=== PATIENT | female | born 1955 | race Caucasian/White ===

== ENCOUNTER 2020-11-25 10:18 | Day surgery (SDC) | payer MEDICARE ==
[~2020-11-25] VITALS: Ht 160 cm; Wt 154.6 kg
[~2020-11-25 10:18] MED LIST: CELE-193 PO; DULO20CA50 PO; ESCI20TA PO; ESTR2TAB PO; GABA-532 PO; HYDR-4353 PO; LEVO75TA PO; ZOLP10TA5 PO
[2020-11-25 10:32] VITALS: BP 129/62
[2020-11-25] MEDS ORDERED: fentaNYL/PF 50MCG/1 ML 2ML syringe ONE (10:49)
[2020-11-25] MEDS ORDERED: MIDAZolam 1 MG/ML 5ML VIAL ONE (10:50)
[2020-11-25] MEDS ORDERED: ESCI-10 PO (10:58)
[2020-11-25] MEDS ORDERED: BUPR150T8 (10:58)
[2020-11-25] MEDS ORDERED: HYDR-3965 PO (10:59)
[2020-11-25] MEDS ORDERED: GABA300C PO (10:59)
[2020-11-25] MEDS ORDERED: MONT10TA21 PO (11:00)
[2020-11-25 11:53] VITALS: BP 114/71
[2020-11-25 12:03] VITALS: BP 118/62
[2020-11-25 12:13] VITALS: BP 117/65
[2020-11-25 12:23] VITALS: BP 108/66
== END 2020-11-25 12:35 | disposition home or self-care (01) ==
LOC: GI LAB 10:18
PROVIDERS: ATTEND Internal Medicine Gastroenterology
DX: Z12.11 Encounter for screening for malignant neoplasm of colon (principal); K57.30 Diverticulosis of large intestine without perforation or abscess without bleeding; K64.8 Other hemorrhoids; K63.89 Other specified diseases of intestine; E66.9 Obesity, unspecified; Z68.44 Body mass index [BMI] 60.0-69.9, adult; Z87.891 Personal history of nicotine dependence
CPT/HCPCS: 99153; G0121; G0500; J2250; J3010; J7040; 45378; 99152; A4620

== ENCOUNTER 2021-11-17 08:14 | Inpatient (IN) | payer MEDICARE ==
[~2021-11-17] VITALS: Ht 160 cm; Wt 153.2 kg
[~2021-11-17 08:14] MED LIST changes: +BUPR150T8; -CELE-193 PO; -DULO20CA50 PO; +ESCI-10 PO; -ESCI20TA PO; -ESTR2TAB PO; -GABA-532 PO; +GABA300C PO; +HYDR-3965 PO; -HYDR-4353 PO; +MONT10TA21 PO
[2021-11-17] MEDS ORDERED: nitroGLYCERIN 0.4mg SUBLingual tab SL PRN (08:20)
--- NOTE | 2021-11-17 08:40 | NUR ---
Pt on BiPAP 22/02 @ 40% FiO2. Pt tolerating it, but still anxious and feels like she can't breathe. aware.
[2021-11-17 08:42] LABS: BASOPHILS % (AUTO) 0.3 % (0-1); EOSINOPHILS % (AUTO) 0.3 % (0-6); HEMATOCRIT 34.9 % (35.0-45.0); HEMOGLOBIN 11.4 g/dl (12.0-16.0); LYMPHOCYTES # (AUTO) 1.4 X10'3 (1.1-4.8); LYMPHOCYTES % (AUTO) 10.3 % (21-51); MEAN CORPUSCULAR HEMOGLOBIN 26.5 PG (27.0-31.0); MEAN CORPUSCULAR HGB CONC 32.6 g/dL (33.0-36.5); MEAN CORPUSCULAR VOLUME 81.2 FL (78-98); MEAN PLATELET VOLUME 8.2 FL (7.4-10.4); MONOCYTES # (AUTO) 0.4 X10'3 (0-0.9); NEUTROPHILS # (AUTO) 11.9 X10'3 (1.8-7.7); NEUTROPHILS % (AUTO) 86.1 % (42-75); PLATELET COUNT 276 X10'3 (140-440); RED BLOOD COUNT 4.29 X10'6 (4.20-5.60); RED CELL DISTRIBUTION WIDTH 15.4 % (11.5-14.5); WHITE BLOOD COUNT 13.8 X10'3 (4.5-11.0)
[2021-11-17 08:59] LABS: ABG BASE EXCESS 1.8 mmol/L (-2.0-2.0); ABG OXYGEN SATURATION 98.6 % (94-97); ABG PCO2 (T) 29.1 mmHg (32.0-45.0); ABG PO2 (T) 124.3 mmHg (75.0-100.0); ALLEN'S TEST POSITIVE; FCOHb 0.3 % (0.0-3.9); FMetHb 0.3 % (0.0-1.5); PATIENT TEMPERATURE 36.3; RESPIRATORY RATE 10 b/min; TIDAL VOLUME 752 mL
[2021-11-17 09:08] LABS: ALANINE AMINOTRANSFERASE 17 U/L (12-78); ALBUMIN 3.6 G/DL (3.4-5.0); ALBUMIN/GLOBULIN RATIO 0.9 (1.1-1.5); ALKALINE PHOSPHATASE 69 IU/L (46-116); ASPARTATE AMINO TRANSFERASE 16 U/L (10-37); BILIRUBIN,TOTAL 0.3 MG/DL (0.1-1.0); BLOOD UREA NITROGEN 16 MG/DL (7-18); BUN/CREATININE RATIO 17.8 (6.6-38.0); CALCIUM 9.1 MG/DL (8.5-10.1); GLUCOSE 154 MG/DL (70-104); TOTAL PROTEIN 7.4 G/DL (6.4-8.2); eGFR 63 ML/MIN
[2021-11-17] MEDS ORDERED: LORazepam 2 mg/ml vial IV ONE (09:10)
[2021-11-17] MEDS ORDERED: ondansetron/PF 4mg/2ml inj IV ONE (10:00)
--- NOTE | 2021-11-17 10:15 | NUR ---
Pt states that this started by being sick to her stomach yesterday, which continued into the night, and awoke severely SOB. Pt denies CP or other associated symptoms.
[2021-11-17] MEDS ORDERED: furosemide 10 MG/1 ML 10ml inj IV ONE (10:20)
[2021-11-17] MEDS ORDERED: metoclopramide 5 mg/ml inj IV ONE (10:25)
--- NOTE | 2021-11-17 10:57 | NUR ---
Pt still dry heaving. Reglan given. Lasix given as well. Pt states she feels miserable. aware.
--- NOTE | 2021-11-17 11:54 | NUR ---
Pt still nauseated and dry MD justa notified. Will request de leon for pt comfort and ease.
[2021-11-17] MEDS ORDERED: haloperidol lactate 5mg/ml inj IV ONE (12:00)
[2021-11-17 12:09] LABS: D-DIMER 0.98 MG/L FEU (0-0.50)
--- NOTE | 2021-11-17 12:30 | NUR ---
16 fr de leon placed, clear urine draining to bag, pt tolerated procedure well.
--- NOTE | 2021-11-17 12:54 | NUR ---
UA output 800ml in de leon, plus 2 large voids prior to placement.
[2021-11-17 13:17] LABS: ANION GAP 10 (8-16); CHLORIDE 102 MMOL/L (99-107); POTASSIUM 4.2 MMOL/L (3.5-5.1); SODIUM 139 MMOL/L (135-145)
--- NOTE | 2021-11-17 14:15 | NUR ---
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 MD notified. O2 sats stable.
[2021-11-17] MEDS ORDERED: iohexol 350 MG/ML 50ML vial IV ONE (15:15)
--- NOTE | 2021-11-17 15:21 | NUR ---
Pt to CT
[2021-11-17] MEDS ORDERED: ondansetron/PF 4mg/2ml inj IV PRN (18:05)
[2021-11-17] MEDS ORDERED: albuterol 2.5 MG/3 ML nebule NEB PRN (18:05)
[2021-11-17] MEDS ORDERED: magnesium 4gm in 100ml NS 100 ML IV PRN (18:05)
[2021-11-17] MEDS ORDERED: acetaminophen 325mg tablet PO PRN (18:05)
[2021-11-17] MEDS ORDERED: magnesium 2GM in 50ml NS 50 ML IV PRN (18:05)
[2021-11-17] MEDS ORDERED: mag hydrox/Alum hydrox/simeth 30ml oral suspension PO PRN (18:05)
[2021-11-17] MEDS ORDERED: POTASSIUM BICARB 20meq eff tab 20 MEQ TABLET.EFF PO PRN (18:05)
[2021-11-17] MEDS ORDERED: potassium CL 10mEq/100ml bag 100 ML IV PRN (18:05)
[2021-11-17] MEDS: budesonide 0.5mg/2ml UD nebule IH SCH (19:03)
[2021-11-17] MEDS: ipratropium/albuterol 3ml nebule NEB SCH ×2 (19:03→23:00)
[2021-11-17] MEDS: K and/or MAG REPLACEMENT MC SCH (20:00)
[2021-11-17] MEDS ORDERED: ZOLP10TA PO (20:48)
[2021-11-17] MEDS ORDERED: BUPR-317 PO (20:48)
[2021-11-17] MEDS ORDERED: TRAZ-251 PO (20:48)
[2021-11-17] MEDS ORDERED: IBUP-1986 PO (20:48)
[2021-11-17] MEDS ORDERED: HYDR-3972 PO (20:48)
[2021-11-17] MEDS ORDERED: ALBU17AE26 PO (20:48)
[2021-11-17] MEDS ORDERED: FLUT1DIS11 PO (20:48)
[2021-11-17] MEDS ORDERED: GABA300C PO (20:48)
[2021-11-17] MEDS ORDERED: LEVO100T9 PO (20:48)
[2021-11-17] MEDS ORDERED: ESCI20TA39 PO (20:48)
[2021-11-17] MEDS: enoxaparin 40mg/0.4ml syringe SQ SCH (21:21)
[2021-11-18] VITALS (7 sets, daily range): BP systolic 133–151; BP diastolic 73–85
--- NOTE | 2021-11-18 00:05 | NUR ---
Received report from CHELLY Ramirez. Awaiting patient arrival to the floor
--- NOTE | 2021-11-18 00:25 | NUR ---
Patient arrived to the floor via gurney accompanied by PCT. Placed transferred self from gurney to bed by rolling over. Placed in room 3014A. Patient alert and oriented on 2L NC, in no apparent distress. Slightly short of breath from the transfer, elevated head of bed to facilitate better breathing. Call light and items of frequent use within reach. Will continue to monitor.
[2021-11-18] MEDS: docusate sod 100mg capsule PO SCH ×3 (00:34→20:33)
[2021-11-18] MEDS: piperacillin/tazo 4.5gm/100ml 100 ML IV SCH ×4 (00:37→23:58)
[2021-11-18] MEDS: ipratropium/albuterol 3ml nebule NEB SCH ×6 (02:59→23:00)
[2021-11-18 05:39] LABS: BASOPHILS # (AUTO) 0.1 X10'3 (0-0.2); BASOPHILS % (AUTO) 0.4 % (0-1); EOSINOPHILS % (AUTO) 0 % (0-6); HEMATOCRIT 35.8 % (35.0-45.0); HEMOGLOBIN 11.5 g/dl (12.0-16.0); LYMPHOCYTES # (AUTO) 1.7 X10'3 (1.1-4.8); LYMPHOCYTES % (AUTO) 11.6 % (21-51); MEAN CORPUSCULAR HEMOGLOBIN 25.8 PG (27.0-31.0); MEAN CORPUSCULAR VOLUME 80.5 FL (78-98); MEAN PLATELET VOLUME 8.6 FL (7.4-10.4); MONOCYTES # (AUTO) 0.7 X10'3 (0-0.9); MONOCYTES % (AUTO) 4.8 % (2-12); NEUTROPHILS % (AUTO) 83.2 % (42-75); PLATELET COUNT 311 X10'3 (140-440); RED BLOOD COUNT 4.45 X10'6 (4.20-5.60); RED CELL DISTRIBUTION WIDTH 15.5 % (11.5-14.5); WHITE BLOOD COUNT 14.4 X10'3 (4.5-11.0)
[2021-11-18 06:11] LABS: ALANINE AMINOTRANSFERASE 19 U/L (12-78); ALBUMIN 3.8 G/DL (3.4-5.0); ALKALINE PHOSPHATASE 73 IU/L (46-116); ANION GAP 12 (8-16); ASPARTATE AMINO TRANSFERASE 25 U/L (10-37); BILIRUBIN,TOTAL 0.6 MG/DL (0.1-1.0); BLOOD UREA NITROGEN 19 MG/DL (7-18); BUN/CREATININE RATIO 20.9 (6.6-38.0); CHLORIDE 102 MMOL/L (99-107); CREATININE 0.91 MG/DL (0.40-0.90); GLUCOSE 134 MG/DL (70-104); MAGNESIUM 1.5 MG/DL (1.5-2.4); POTASSIUM 3.3 MMOL/L (3.5-5.1); SODIUM 141 MMOL/L (135-145); TOTAL PROTEIN 7.7 G/DL (6.4-8.2); eGFR 62 ML/MIN
--- NOTE | 2021-11-18 06:34 | NUR ---
Problems reprioritized. Patient report given, questions answered & plan of care reviewed with CHELLY Newman.
--- NOTE | 2021-11-18 06:38 | NUR ---
Patient in room PCU 3014A. I have received report from Andree SPAULDING and had the opportunity to ask questions and assume patient care.
[2021-11-18] MEDS: budesonide 0.5mg/2ml UD nebule IH SCH ×2 (06:58→20:40)
[2021-11-18] MEDS ORDERED: ibuprofen tablet 400 MG TABLET PO PRN (08:25)
[2021-11-18] MEDS ORDERED: traZODone 50mg tablet PO PRN (08:25)
[2021-11-18] MEDS ORDERED: HYDROcodone/acetaminophen 10/325mg tab PO PRN (08:25)
[2021-11-18] MEDS: K and/or MAG REPLACEMENT MC SCH ×2 (08:55→20:00)
[2021-11-18] MEDS: POTASSIUM BICARB 20meq eff tab 20 MEQ TABLET.EFF PO PRN ×3 (09:25→23:58)
--- NOTE | 2021-11-18 11:36 | NUR ---
Pierce catheter removed. Patient tolerated well. Urine is cloudy with sediment. Will call MD regarding urine.
[2021-11-18] MEDS: gabapentin 300mg capsule PO SCH ×2 (12:58→20:33)
[2021-11-18 15:06] LABS: CLARITY,URINE TURBID (Clear); COLOR,URINE YELLOW (Yellow); GLUCOSE, URINE NEGATIVE (Neg); KETONES,URINE NEGATIVE (Neg); LEUKOCYTE ESTERASE ,URINE TRACE (Neg); NITRITES, URINE NEGATIVE (Neg); OCCULT BLOOD,URINE LARGE (Neg); PROTEIN,URINE 100 mg/dl (Neg); UROBILINOGEN,URINE 0.2 E.U/dL (0.2-1.0)
[2021-11-18 15:10] LABS: UA COLLECTION TYPE NON-SPECIFIED
[2021-11-18 15:14] LABS: AMORPHOUS URATES 4+
[2021-11-18 15:15] LABS: SQUAMOUS EPITHELIAL CELL,UR MODERATE /LPF (FEW)
[2021-11-18 15:16] LABS: BACTERIA,URINE 1+ /HPF (Neg); WBC,URINE 0-4 /HPF (0-4)
--- NOTE | 2021-11-18 15:37 | NUR ---
Informed MD that the Urinalysis that was sent was positive and a culture was indicated.
--- NOTE | 2021-11-18 18:30 | NUR ---
Problems reprioritized. Patient report given, questions answered & plan of care reviewed with Andree SPAULDING.
--- NOTE | 2021-11-18 18:34 | NUR ---
Patient in room PCU 3014. I have received report from loco and had the opportunity to ask questions and assume patient care.
[2021-11-18] MEDS: enoxaparin 40mg/0.4ml syringe SQ SCH (20:36)
[2021-11-18] MEDS ORDERED: zolpidem 5mg tablet PO PRN (21:00)
[2021-11-19] MEDS: ipratropium/albuterol 3ml nebule NEB SCH ×3 (03:00→12:50)
[2021-11-19 06:00] VITALS: BP 155/81
[2021-11-19 06:12] LABS: BASOPHILS # (AUTO) 0.1 X10'3 (0-0.2); BASOPHILS % (AUTO) 0.5 % (0-1); EOSINOPHILS # (AUTO) 0.2 X10'3 (0-0.9); EOSINOPHILS % (AUTO) 1.8 % (0-6); HEMATOCRIT 36.7 % (35.0-45.0); HEMOGLOBIN 11.9 g/dl (12.0-16.0); LYMPHOCYTES # (AUTO) 2.3 X10'3 (1.1-4.8); LYMPHOCYTES % (AUTO) 19.8 % (21-51); MEAN CORPUSCULAR HEMOGLOBIN 26.8 PG (27.0-31.0); MEAN CORPUSCULAR HGB CONC 32.5 g/dL (33.0-36.5); MEAN CORPUSCULAR VOLUME 82.4 FL (78-98); MEAN PLATELET VOLUME 8.1 FL (7.4-10.4); MONOCYTES # (AUTO) 0.7 X10'3 (0-0.9); MONOCYTES % (AUTO) 6.2 % (2-12); NEUTROPHILS # (AUTO) 8.2 X10'3 (1.8-7.7); NEUTROPHILS % (AUTO) 71.7 % (42-75); PLATELET COUNT 281 X10'3 (140-440); RED BLOOD COUNT 4.46 X10'6 (4.20-5.60); RED CELL DISTRIBUTION WIDTH 15.6 % (11.5-14.5); WHITE BLOOD COUNT 11.5 X10'3 (4.5-11.0)
[2021-11-19 06:16] LABS: ALANINE AMINOTRANSFERASE 19 U/L (12-78); ALBUMIN 3.4 G/DL (3.4-5.0); ALKALINE PHOSPHATASE 62 IU/L (46-116); ANION GAP 7 (8-16); ASPARTATE AMINO TRANSFERASE 23 U/L (10-37); BILIRUBIN,TOTAL 0.5 MG/DL (0.1-1.0); BLOOD UREA NITROGEN 18 MG/DL (7-18); BUN/CREATININE RATIO 19.6 (6.6-38.0); CALCIUM 9.2 MG/DL (8.5-10.1); CHLORIDE 104 MMOL/L (99-107); CREATININE 0.92 MG/DL (0.40-0.90); GLUCOSE 119 MG/DL (70-104); MAGNESIUM 1.8 MG/DL (1.5-2.4); POTASSIUM 3.5 MMOL/L (3.5-5.1); SODIUM 142 MMOL/L (135-145); TOTAL CARBON DIOXIDE 30.8 MMOL/L (24-32); TOTAL PROTEIN 6.9 G/DL (6.4-8.2); eGFR 61 ML/MIN
--- NOTE | 2021-11-19 06:28 | NUR ---
Problems reprioritized. Patient report given, questions answered & plan of care reviewed with loco denny.
--- NOTE | 2021-11-19 06:42 | NUR ---
Patient in room PCU 3014. I have received report from Andree SPAULDING and had the opportunity to ask questions and assume patient care.
[2021-11-19] MEDS ORDERED: levoTHYROXINE 100mcg tablet PO SCH (08:00)
[2021-11-19] MEDS ORDERED: ESCITALOPRAM OXALATE 5 MG TABLET PO SCH (08:00)
[2021-11-19] MEDS ORDERED: buproprion 150mg XL (24-hour) tablet PO SCH (08:00)
[2021-11-19] MEDS: K and/or MAG REPLACEMENT MC SCH (08:00)
[2021-11-19] MEDS: docusate sod 100mg capsule PO SCH (08:00)
[2021-11-19] MEDS: budesonide 0.5mg/2ml UD nebule IH SCH (08:31)
[2021-11-19 09:12] LABS: C DIFF SPECIMEN=DIARRHEA? ACCEPTABLE; C DIFFICILE TOXINS A&B NEGATIVE (Neg)
[2021-11-19] MEDS: piperacillin/tazo 4.5gm/100ml 100 ML IV SCH (09:27)
[2021-11-19] MEDS: gabapentin 300mg capsule PO SCH (09:28)
[2021-11-19] MEDS ORDERED: buPROPion SR 150mg tablet PO SCH (10:47)
[2021-11-19] MEDS ORDERED: POTA20TA34 PO (11:37)
[2021-11-19] MEDS ORDERED: ALBU2.5V7 NEB (11:37)
[2021-11-19] MEDS ORDERED: IPRA3AMP9 NEB (11:37)
[2021-11-19] MEDS ORDERED: AMOX-580 PO (11:37)
--- NOTE | 2021-11-27 09:57 | NUR ---
Case Management DC follow up: no answer to call ; therefore, left message at his time.
== END 2021-11-19 14:27 | disposition home health service (06) | DRG 871 ==
LOC: ER 08:14 → ED HOLD 18:18 → PCU 3S 11-18 00:15
PROVIDERS: ADMIT Family Medicine; ATTEND Family Medicine
PROC: 5A09357 Assistance with Respiratory Ventilation, Less than 24 Consecutive Hours, Continuous Positive Airway Pressure (ICD-10-PCS; principal; 2021-11-17)
PROC: B32T1ZZ Computerized Tomography (CT Scan) of Left Pulmonary Artery using Low Osmolar Contrast (ICD-10-PCS; 2021-11-17)
PROC: B3201ZZ Computerized Tomography (CT Scan) of Thoracic Aorta using Low Osmolar Contrast (ICD-10-PCS; 2021-11-17)
PROC: B32S1ZZ Computerized Tomography (CT Scan) of Right Pulmonary Artery using Low Osmolar Contrast (ICD-10-PCS; 2021-11-17)
DX: A41.9 Sepsis, unspecified organism (principal); J96.00 Acute respiratory failure, unspecified whether with hypoxia or hypercapnia; J69.0 Pneumonitis due to inhalation of food and vomit; J44.1 Chronic obstructive pulmonary disease with (acute) exacerbation; N39.0 Urinary tract infection, site not specified; G89.29 Other chronic pain; Z20.822 Contact with and (suspected) exposure to COVID-19; M54.9 Dorsalgia, unspecified; G47.33 Obstructive sleep apnea (adult) (pediatric); M79.7 Fibromyalgia; Z79.51 Long term (current) use of inhaled steroids; Z90.710 Acquired absence of both cervix and uterus; Z88.5 Allergy status to narcotic agent; Z79.899 Other long term (current) drug therapy; Z90.49 Acquired absence of other specified parts of digestive tract; E87.6 Hypokalemia
CPT/HCPCS: 36415; 36600; 71045; 71275; 80053; 81001; 82803; 83605; 83735; 83880; 84484; 85018; 85025; 85379; 87040; 87081; 87088; 87324; 87449; 87635; 93005; 94640; 94660; 94760; 96374; 96375; 97116; 97161; 97530; 99285; C9803; G0378; J1630; J1650; J1940; J2060; J2405; J2543; J2765; Q9967

== ENCOUNTER 2022-04-10 14:16 | Outpatient (CLI) | payer MEDICARE ==
[~2022-04-10] VITALS: Ht 160 cm; Wt 155.1 kg
[~2022-04-10 14:16] MED LIST changes: +ALBU17AE26 PO; +ALBU2.5V7 NEB; +AMOX-580 PO; +BUPR-317 PO; -BUPR150T8; -ESCI-10 PO; +ESCI20TA39 PO; +FLUT1DIS11 PO; -HYDR-3965 PO; +HYDR-3972 PO; +IBUP-1986 PO; +IPRA3AMP9 NEB; +LEVO100T9 PO; -LEVO75TA PO; -MONT10TA21 PO; +POTA20TA34 PO; +TRAZ-251 PO; +ZOLP10TA PO; -ZOLP10TA5 PO
[2022-04-10] MEDS ORDERED: albuterol 2.5 MG/3 ML nebule NEB ONE (14:50)
== END 2022-04-10 23:59 | disposition home or self-care (01) ==
LOC: RT 14:16
PROVIDERS: ATTEND Internal Medicine Pulmonary Disease
DX: J44.9 Chronic obstructive pulmonary disease, unspecified (principal); Z87.891 Personal history of nicotine dependence; Z79.899 Other long term (current) drug therapy
CPT/HCPCS: 94060; 94727; 94729; 94760

== ENCOUNTER 2022-06-09 00:22 | Outpatient (CLI) | payer MEDICARE ==
[~2022-06-09 00:22] MED LIST changes: -ALBU2.5V7 NEB; -AMOX-580 PO; +DULO60CA65 PO; +DUPI300P SQ; +FERR325T32 PO; +FURO-150 PO; +GABA-530 PO; -GABA300C PO; +HYDR-3686 PO; -IPRA3AMP9 NEB; +LEVO-65 PO; +MAGN64TA8 PO; +POTA-207 PO; -POTA20TA34 PO; +PRED20TA PO
== END 2022-06-09 23:59 | disposition home or self-care (01) ==
LOC: RT 00:22
PROVIDERS: ATTEND Internal Medicine Pulmonary Disease
DX: J45.41 Moderate persistent asthma with (acute) exacerbation (principal)
CPT/HCPCS: 94618

== ENCOUNTER 2023-10-27 15:37 | Outpatient (CLI) | payer MEDICARE ==
[~2023-10-27] VITALS: Ht 190.5 cm; Wt 291.2 kg
[~2023-10-27 15:37] MED LIST changes: -FURO-150 PO; -LEVO-65 PO; -POTA-207 PO; -PRED20TA PO
[2023-10-27] MEDS ORDERED: albuterol 1.25 MG/3 ML (1/2 strength) nebule NEB ONE (16:20)
[2023-10-27] MEDS: albuterol 2.5 MG/3 ML nebule NEB PRN (16:46)
[2023-10-27 16:47] VITALS: PULSE 76; RESP 14; O2SAT 96
== END 2023-10-27 23:59 | disposition home or self-care (01) ==
LOC: RT 15:37
PROVIDERS: ATTEND Internal Medicine Pulmonary Disease
DX: J47.9 Bronchiectasis, uncomplicated (principal)
CPT/HCPCS: 94060; 94727; 94729; 94760